=== PATIENT | male | born 1940 | race American Indian/Alaskan Native ===

== ENCOUNTER 2016-08-10 10:17 | Day surgery (SDC) | payer MEDICARE, OTHER ==
[2016-08-10] MEDS ORDERED: ceFAZolin IV 1 gm in Dextrose 1 GM/50 ML BAG IVPB ONE (10:48)
[2016-08-10] MEDS ORDERED: HEPARIN-NS 5,000 UNITS/500 ML 5,000 UNIT/500 ML BAG IV ONE (10:49)
[2016-08-10 11:27] LABS: POTASSIUM 4.2 mmol/L (3.6-5.2)
[2016-08-10 11:30] LABS: CALCIUM 8.9 mg/dl (8.6-10.4)
[2016-08-10] MEDS ORDERED: Propofol 10 mg/ml Inj (20 ML) ONE (11:32)
[2016-08-10] MEDS ORDERED: Midazolam 2 MG/2 ML VIAL ONE (11:33)
[2016-08-10] MEDS ORDERED: Sodium Chloride 0.9% 500 ML IV ONE (11:40)
[2016-08-10] MEDS ORDERED: HYDROmorphone 0.5 mg/0.5 ml ISec IVP PRN (13:19)
[2016-08-10] MEDS ORDERED: Oxycodone/Acetaminophen 5/325 mg Tab PO PRN (13:40)
--- NOTE | 2016-08-10 13:40 | PCM.SURG1 ---
Surgeon's Initial Post Op Note - Surgeon's Notes Surgeon: Dr Arzate President [employer]: Dr Lopes PGY2 Type of Anesthesia: General LMA Pre-Operative Diagnosis: renal failure Operative Findings: see report Post-Operative Diagnosis: renal failure Operation Performed: brachio-basilic AV fistula LEFT ARM Specimen/Specimens Removed: none Estimated Blood Loss: EBL {In ML}: 10 Blood Products Given: N/A Drains Used: No Drains Post-Op Condition: Good Date of Surgery/Procedure: 08/10/16 Time of Surgery/Procedure: 13:39
[2016-08-10 15:45] VITALS: BP 176/72; PULSE 72; RESP 18; TEMP 97; O2SAT 100
--- NOTE | 2016-08-13 13:44 | OP ---
PROCEDURE DATE: 08/10/2016 PREOPERATIVE DIAGNOSIS: Renal failure. POSTOPERATIVE DIAGNOSIS: Renal failure. PROCEDURE CARRIED OUT: Brachiobasilic fistula, left elbow. SURGEON: Alvarez Arzate MD. LEGISLATIVE ASSISTANT: None. ANESTHESIOLOGIST: Staff anesthesiologist. INDICATIONS: The patient is a middle-aged man with renal insufficiency who has failed multiple fistu las in the past despite excellent-appearing surface veins. OPERATIVE FINDINGS: Initially, we planned to use the basilic vein; however, the cephalic vein joined into the brachial vein about an inch above our site of anastomosis. Because of the failure of previ ously based fistulas on smaller blood vessels, we elected the brachial artery, brachiobasilic fistula . PROCEDURE: The patient was given general anesthesia, intravenous antibiotics. The veins were marked on the skin with an ultrasound machine. An incision made directly over these and an end-to-side sophy stomosis using loupe magnification and heparin anticoagulation was carried out. After completion of the anastomosis, heparin was now reversed. The skin was closed. The patient tolerated the procedure uneventfully. Blood loss was less than 25 mL. OPERATION CARRIED OUT: AV fistula, left elbow. Alvarez Arzate Jr., MD cc: 56 TT: 08/13/2016 13:44:06 ma
== END 2016-08-10 15:56 | disposition home or self-care (01) ==
LOC: C.SDS 10:17
PROVIDERS: ATTEND Surgery Vascular Surgery
DX: N18.6 End stage renal disease (principal)
CPT/HCPCS: 36415; 36821; 80048; J0690; J1170; J1644; J2250; J2704; J3010; J7040

== ENCOUNTER 2016-11-02 09:26 | Day surgery (SDC) | payer MEDICARE, OTHER ==
[~2016-11-02 09:26] MED LIST: Lidocaine 1% Inj (20ml) ONE
[2016-11-02] MEDS ORDERED: Iodixanol 320 MG/ML 200 ML BOTTLE IV ONE (10:01)
[2016-11-02] MEDS ORDERED: Propofol 10 mg/ml Inj (20 ML) ONE (10:12)
[2016-11-02] MEDS ORDERED: Lidocaine Hydrochloride 5 ML INJ ONE (10:12)
[2016-11-02 10:26] LABS: POTASSIUM 4.3 mmol/L (3.6-5.2)
[2016-11-02 10:30] LABS: CALCIUM 8.1 mg/dl (8.6-10.4)
[2016-11-02] MEDS ORDERED: HEPARIN-NS 5,000 UNITS/500 ML 10,000 UNIT/1,000 ML BAG IV ONE (11:00)
[2016-11-02] MEDS ORDERED: Lactated Ringer's 1,000 ML IV ONE (11:20)
[2016-11-02] MEDS ORDERED: ceFAZolin IV 1 gm in Dextrose 1 GM/50 ML BAG IVPB ONE (11:31)
[2016-11-02] MEDS ORDERED: ePHEDrine 50 mg/ml Inj ONE (12:24)
[2016-11-02] MEDS ORDERED: Sodium Chloride 0.9% 300 ML IV ONE (13:32)
[2016-11-02] MEDS ORDERED: Oxycodone/Acetaminophen 5/325 mg Tab PO PRN (13:35)
--- NOTE | 2016-11-02 13:35 | PCM.SURG1 ---
Surgeon's Initial Post Op Note - Surgeon's Notes Surgeon: MD Carito Supervisor [employer]: LUIS A LoganY2. [place], MS4 Pre-Operative Diagnosis: CKD Operative Findings: AV fistula, left arm Post-Operative Diagnosis: CKD Operation Performed: transpostion of basilic vein on left arm, with angiogram Specimen/Specimens Removed: n/a Estimated Blood Loss: EBL {In ML}: 100 Date of Surgery/Procedure: 11/02/16 Time of Surgery/Procedure: 12:00
[2016-11-02] MEDS ORDERED: HYDROmorphone 0.5 mg/0.5 ml ISec IVP PRN (13:45)
[2016-11-02 15:06] VITALS: RESP 18
[2016-11-02 16:11] VITALS: BP 174/61; PULSE 77; TEMP 97.8; O2SAT 98
--- NOTE | 2016-11-03 03:11 | OP ---
PROCEDURE DATE: 11/02/2016 PREOPERATIVE DIAGNOSIS: Immature brachiobasilic fistula, left arm. PROCEDURE CARRIED OUT: Revision with creation of basilic vein transposition fistula. SURGEON: Alvarez Arzate Jr., MD EMBROIDERER: . ANESTHESIOLOGIST: Mr. Taylor. TYPE OF ANESTHESIA: General anesthesia. INDICATION: The patient is a older middle-aged male with renal insufficiency, presented with management of catheter. Previously dialyzed with peritoneal dialysis. He had numerous fistulas carried down his arm, all of which were excellent initially and then found subsequently too stenosed or thrombosed soon after years. Recently, he had creation of a brachiobasilic fistula of his elbow, which appeared to be working quite well. The vein measurements are good, but it is too deep from the surface noted to be accessed. In addition, on the preop Duplex scan suggested that there is a perianastomotic stenosis. Nonetheless, what we found is after we had elevated the fistula prior to closing the wound, we took a fistulogram with the vessel occluded which showed a brisk flow into the artery and no evidence of any perianastomotic stenosis. This was taken at 2 separate views. After this had been done, we then closed the wounds. So, operation carried out is revision of AV fistula with creation of basilic vein transposition and 2 fistulogram of left arm with no findings of any perianastomotic stenosis. Alvarez Arzate Jr., MD
--- NOTE | 2016-11-03 15:56 | RAD ---
PROCEDURE: Intraoperative fluoroscopy HISTORY: RENAL FAILURE COMPARISON: Not available TECHNIQUE: Intraoperative fluoroscopy was provided for AV fistula revision. Total time of fluoroscopy was 20.9 seconds. FINDINGS: Multiple fluoroscopic spot films are submitted. Films are on file for review. IMPRESSION: Fluoroscopy provided.
== END 2016-11-02 15:50 | disposition home or self-care (01) ==
LOC: C.SDS 09:26
PROVIDERS: ATTEND Surgery Vascular Surgery
DX: T82.898A Other specified complication of vascular prosthetic devices, implants and grafts, initial encounter (principal); N18.6 End stage renal disease; N28.9 Disorder of kidney and ureter, unspecified
CPT/HCPCS: 36415; 36832; 76000; 80048; J0690; J1170; J2405; J2704; J3010; J7040; J7120

== ENCOUNTER 2017-07-28 06:13 | Day surgery (SDC) | payer MEDICARE, OTHER ==
[2017-07-12 09:32] VITALS: BMI 21.1
[~2017-07-28 06:13] MED LIST changes: +Lactated Ringer's 500 ML IV ONE; -Lidocaine 1% Inj (20ml) ONE; +Phenylephrine 2.5% Opht Soln OS SCH; +Tropicamide 1% Opht SOLUTION OS SCH
[2017-07-28] MEDS ORDERED: Povidone Iodine Ophthalmic 5% Soln ONE (07:25)
[2017-07-28] MEDS ORDERED: Tobramycin/Dexamethasone OPHT OINT ONE (07:25)
[2017-07-28] MEDS ORDERED: Carbachol 0.01% IO ONE (07:25)
[2017-07-28] MEDS ORDERED: Hyaluronidase Human, Recombi 150 U/ML VIAL ONE (07:26)
[2017-07-28] MEDS ORDERED: Chondroitin/Hyaluronate Opth Syringe KIT (0.55 ml-0.5 ml) IO ONE (07:26)
[2017-07-28] MEDS ORDERED: Lidocaine 2% MPF (5 ml) Inj ONE (07:32)
[2017-07-28 08:19] LABS: CALCIUM 9.3 mg/dl (8.6-10.4)
[2017-07-28] MEDS ORDERED: Midazolam 2 MG/2 ML VIAL ONE (09:01)
[2017-07-28] MEDS ORDERED: Chondroitin/Hyaluronate 40 mg/ml-30 mg/ml Ophth Syringe (0.5 ml) IO ONE (09:21)
[2017-07-28 10:22] VITALS: O2SAT 100
[2017-07-28 12:07] VITALS: BP 121/62; PULSE 84; RESP 17; TEMP 97.6
--- NOTE | 2017-07-29 02:49 | OP ---
PROCEDURE DATE: 07/28/2017 PREOPERATIVE DIAGNOSIS: Complex cataract of left eye, hypermature cataract and pupillary miosis. POSTOPERATIVE DIAGNOSIS: Complex cataract of left eye, hypermature cataract and pupillary miosis. PROCEDURE: Complex cataract surgery Malyugin ring and VisionBlue, left eye. ATTENDING: Espinoza Cid MD ANESTHESIA: Retrobulbar block. COMPLICATIONS: None. ESTIMATED BLOOD LOSS: Zero. DESCRIPTION OF PROCEDURE: The patient was brought to the operating room and properly identified. Anesthesia staff administered intravenous sedation and retrobulbar block was given to the surgical eye. The patient was then prepped and draped in the usual sterile fashion. Attention was turned to the surgical eye. A lid speculum was placed into interpalpebral fissure. Sitting temporally, two paracentesis incisions were made. The anterior chamber was filled with viscoelastic and a triplanar clear corneal incision was made. Using a cystitome, anterior capsular leaflet was created. Utrata forceps were used to create a continuous curvilinear capsulorrhexis. Balanced salt solution on a cannula was used to hydrodissect and hydrodelineate the lens. The lens was then phacoemulsified with no complications. Automated irrigation and aspiration was used to remove the cortex. Viscoelastic was used to deepen the anterior chamber. The lens was placed in the capsular bag. Automated irrigation and aspiration was used to remove the viscoelastic. The anterior chamber was filled with Miochol. The wounds were hydrated with balanced salt solution. There was noted to be no leak at the end of the case and the lens was well positioned. The lid speculum was removed. The eye was given antibiotics and steroids and covered with a patch and shield. The patient was returned to the recovery room in stable condition. ADDENDUM The pupil was held dilated using a Malyugin ring after capsule was stained using VisionBlue in order to be able to create a continuous curvilinear capsulorrhexis. Espinoza Cid MD
== END 2017-07-28 10:52 | disposition home or self-care (01) ==
LOC: C.SDS 06:13
PROVIDERS: ATTEND Ophthalmology
DX: H25.12 Age-related nuclear cataract, left eye (principal); H57.03 Miosis
CPT/HCPCS: 36415; 66982; 80048; J2250; J3010; J3470